=== PATIENT | male | born 1950 | race Caucasian/White ===

== ENCOUNTER 2019-03-05 19:53 | Emergency (ER) | payer MEDICARE ==
[~2019-03-05] VITALS: Ht 167.6 cm; Wt 145.5 kg
[2019-03-05 20:04] VITALS: BP 129/63; Ht 167.6 cm; Wt 145.5 kg
[2019-03-05] MEDS ORDERED: GLUCOPHAGE500 MG (20:05)
[2019-03-05] MEDS ORDERED: BP MEDS (20:06)
[2019-03-05] MEDS ORDERED: LISINOPRIL10 MG (20:06)
[2019-03-05] MEDS ORDERED: ALLERGY MEDICINE (20:06)
[2019-03-05] MEDS ORDERED: MOBIC7.5 MG PO (20:07)
[2019-03-05 20:56] LABS: BASOPHILS 0.3 % (0-2); EOSINOPHILS 11.6 % (0-7); HEMOGLOBIN 12.2 g/dL (13.5-17.5); IMMATURE GRANULOCYTES 0.4 % (0-5); MCHC 31.3 g/dL (31.0-37.0); MCV 92.9 fL (80.0-100.0); MEAN PLATELET VOLUME 9.6 fL (7.4-10.4); NEUTROPHILS 64.7 % (40-80); PLATELET COUNT 202 10x3/uL (130-400); RDW 16.5 % (11.5-14.5); WBC 9.1 10x3/uL (4.8-10.8)
[2019-03-05 21:21] LABS: ANION GAP 12.9 mmol/L (8-16); BILIRUBIN - TOTAL 0.3 mg/dL (0.2-1.3); CALCIUM 8.4 mg/dL (8.5-10.1); CARBON DIOXIDE 26.1 mmol/L (21.0-32.0); CREATININE - SERUM 1.8 mg/dL (0.6-1.3); PROTEIN - SERUM 6.9 g/dL (6.4-8.2)
[2019-03-05] MEDS ORDERED: KENALOG 0.1 % 115 GM TOPICAL (21:44)
== END 2019-03-05 22:06 | disposition home or self-care (01) ==
LOC: D.ER 19:53
PROVIDERS: Family Medicine
DX: R42 Dizziness and giddiness (principal); R60.0 Localized edema; I87.2 Venous insufficiency (chronic) (peripheral)